=== PATIENT | male | born 1995 | race Hispanic/Latino ===

== ENCOUNTER 2020-12-14 13:29 | Emergency (ER) | payer OTHER ==
[2020-12-14] MEDS ORDERED: ACETAMINOPHEN-CODEINE 300/30MG TAB ONE (15:26)
[2020-12-14] MEDS ORDERED: DIPHENHYDRAMINE HCL 25 MG CAPSULE ONE (15:26)
== END 2020-12-14 16:05 | disposition home or self-care (01) ==
LOC: EDH 13:29
DX: J06.9 Acute upper respiratory infection, unspecified (principal); J30.9 Allergic rhinitis, unspecified
CPT/HCPCS: 71045; 99283; Q0163